=== PATIENT | female | born 1995 | race Hispanic/Latino ===

== ENCOUNTER 2024-02-09 10:55 | Inpatient (IN) | payer MEDICAID ==
[~2024-02-09] VITALS: Ht 149.9 cm; Wt 100.2 kg
[2024-02-09] MEDS ORDERED: LACTATED RINGERS 1000ML 1,000 ML IV PRN (11:00)
[2024-02-09 11:43] LABS: HEMATOCRIT 33.2 % (36-48); MEAN CORPUSCULAR HEMOGLOBIN 28.3 pg (27.0-33.0); MEAN CORPUSCULAR HGB CONC 31.9 g/dL (32.0-36.0); MEAN CORPUSCULAR VOLUME 88.5 fL (79-99); RED BLOOD CELL COUNT(AUTO) 3.75 MIL/uL (4.00-5.50); RED CELL DISTRIBUTION WIDTH 16.9 % (11.0-15.5); WHITE BLOOD COUNT (AUTO) 8.7 K/uL (4.8-10.8)
[2024-02-09 11:53] LABS: CREATININE 0.7 mg/dL (0.5-1.0); POTASSIUM 3.8 mmol/L (3.5-5.1)
[2024-02-09 11:57] LABS: ALBUMIN 2.3 g/dL (3.5-5.0); BILIRUBIN,TOTAL 0.3 mg/dL (0.2-1.0); TOTAL PROTEIN, SERUM 6.1 g/dL (6.0-8.3)
[2024-02-09 12:02] LABS: INR <= 0.93 (0.85-1.15); PROTHROMBIN TIME 9.8 SEC (9.6-11.6)
[2024-02-09 12:03] LABS: PARTIAL THROMBOPLASTIN TIME 26.4 SEC (26.3-35.5)
[2024-02-09 12:06] LABS: FIBRINOGEN 407 mg/dL (180-350)
[2024-02-09 12:35] LABS: HIV 1&2 ANTIBODY Non-Reactive (Negative); HIV-1 p24 Antigen Non-Reactive (Negative)
[2024-02-09] MEDS ORDERED: ceFAZolin SODIUM 1 GM VIAL IVPB PRN (13:00)
[2024-02-09] MEDS ORDERED: CALDOLOR 800MG+NS 250ML 250 ML IV PRN (13:00)
[2024-02-09 15:05] LABS: APPEARANCE,URINE CLEAR (CLEAR); BILIRUBIN,URINE NEGATIVE (NEGATIVE); COLOR,URINE LIGHT-YELLOW (YELLOW); GLUCOSE, URINE (UA) NEGATIVE (NEGATIVE); KETONES,URINE 10 mg/dL (NEGATIVE); LEUKOCYTE ESTERASE ,URINE NEGATIVE Leu/uL (NEGATIVE); NITRATE,URINE NEGATIVE (NEGATIVE); OCCULT BLOOD,URINE NEGATIVE (NEGATIVE); PROTEIN,URINE 20 mg/dL (NEGATIVE); UROBILINOGEN,URINE 0.2 mg/dL (0.2-1.0)
[2024-02-09 15:13] LABS: ADD UA MICROSCOPIC YES
[2024-02-09 15:15] LABS: BACTERIA,URINE RARE /HPF (None Seen); MUCUS,URINE RARE LPF (None Seen); RBC,URINE 0-1 /HPF (0-1); SQUAMOUS EPITHELIAL CELL,UR FEW /HPF (0-2); WBC,URINE 0-1 /HPF (0-1); YEAST,URINE BUDDING RARE /HPF (None Seen)
[2024-02-09] MEDS ORDERED: FENTanyl CITRate PF 50 MCG/1 ML 2ML VIAL ONE ×2 (16:54→17:07)
[2024-02-09] MEDS ORDERED: hydroMORPHone 1 MG INJ ONE (16:58)
[2024-02-09] MEDS ORDERED: ROPivacaine 0.5% 5MG/ML 30ML ONE (16:59)
[2024-02-09] MEDS: CITRIC ACID/SODIUM CITRATE 30 ML UDCUP ONE (17:07)
[2024-02-09] MEDS ORDERED: phenylEPHRINE HCL 10 MG/ML 1ML VIAL IV ONE (17:08)
[2024-02-09] MEDS: ceFAZolin SODIUM 3 GM VIAL IVPB ONE (17:12)
[2024-02-09] MEDS ORDERED: MISOPROSTOL 200 MCG TABLET ONE (17:23)
[2024-02-09] MEDS ORDERED: ondanSETRON 4MG INJ ONE (17:36)
[2024-02-09] MEDS ORDERED: MIDAZOLAM HCL 1 MG/ML 2ML VIAL ONE (17:48)
[2024-02-09] MEDS ORDERED: 0.9%NACL 10ML VIAL IVP PRN (18:30)
[2024-02-09] MEDS ORDERED: DEXTROSE 5 %-0.45 % NACL 1,000 ML IV PRN (18:30)
[2024-02-09] MEDS ORDERED: MEPERIDINE-PF 75 MG/ML SYG IM PRN (18:30)
[2024-02-09] MEDS ORDERED: PROMETHAZINE HCL 25 MG/ML 1ML AMPULE IM PRN (18:30)
[2024-02-09] MEDS: hydroMORPHone 0.5 MG SYG (0.5MG/0.5ML) IVP PRN (19:56)
[2024-02-09] MEDS ORDERED: TRANEXAMIC ACID 1000MG/10ML ONE (21:19)
[2024-02-09] MEDS: MISOPROSTOL 200 MCG TABLET PR SCH (22:54)
[2024-02-09] MEDS: TRANEXAMIC ACID 1000MG/10ML IV ONE (22:56)
[2024-02-09 23:47] LABS: HEMATOCRIT 27.6 % (36-48); MEAN CORPUSCULAR HEMOGLOBIN 28.3 pg (27.0-33.0); MEAN CORPUSCULAR HGB CONC 32.2 g/dL (32.0-36.0); MEAN CORPUSCULAR VOLUME 87.9 fL (79-99); RED BLOOD CELL COUNT(AUTO) 3.14 MIL/uL (4.00-5.50); RED CELL DISTRIBUTION WIDTH 16.6 % (11.0-15.5); WHITE BLOOD COUNT (AUTO) 13.6 K/uL (4.8-10.8)
[2024-02-10] VITALS (9 sets, daily range): BP systolic 107–158; BP diastolic 56–77; PULSE 61–102; RESP 18–20; TEMP 97.5–98.3
[2024-02-10] MEDS ORDERED: LANOLIN 30GM OINTMENT TP PRN
[2024-02-10] MEDS ORDERED: BisaCODYL 10 MG SUPP.RECT RC PRN
[2024-02-10] MEDS ORDERED: acetaMINOPHEN 500 MG TABLET PO PRN
[2024-02-10] MEDS ORDERED: HYDROcodone/APAP 5/325 1 TAB TABLET PO PRN
[2024-02-10] MEDS: CALDOLOR 800MG+NS 250ML 250 ML IV SCH (01:41)
[2024-02-10] MEDS ORDERED: PNV#1CAP5 PO (06:14)
[2024-02-10] MEDS ORDERED: FERR-82 PO (06:14)
[2024-02-10] MEDS ORDERED: MONT-39 PO (06:14)
[2024-02-10] MEDS ORDERED: ASPI-1005 PO (06:14)
[2024-02-10] MEDS ORDERED: DOXY1TAB3 PO (06:14)
[2024-02-10 07:02] LABS: HEMATOCRIT 23.2 % (36-48); MEAN CORPUSCULAR HEMOGLOBIN 28.1 pg (27.0-33.0); MEAN CORPUSCULAR HGB CONC 32.3 g/dL (32.0-36.0); MEAN CORPUSCULAR VOLUME 86.9 fL (79-99); RED BLOOD CELL COUNT(AUTO) 2.67 MIL/uL (4.00-5.50); RED CELL DISTRIBUTION WIDTH 16.5 % (11.0-15.5); WHITE BLOOD COUNT (AUTO) 13.2 K/uL (4.8-10.8)
[2024-02-10] MEDS: SIMETHICONE 80 MG TAB.CHEW PO PRN (09:04)
[2024-02-10] MEDS: doCUSate SODIUM 100 MG CAP PO SCH (09:04)
[2024-02-10] MEDS: monteLUKAST sodIUM 10 MG TAB PO SCH (09:05)
[2024-02-10] MEDS: ibuPROFEN 800 MG TAB PO SCH (12:40)
[2024-02-10 13:52] LABS: RAPID PLASMA REAGIN NONREACTIVE (NONREACTIVE)
[2024-02-10] MEDS: MISOPROSTOL 100 MCG TABLET PR ONE (14:59)
[2024-02-11] VITALS (11 sets, daily range): BP systolic 115–135; BP diastolic 57–76; PULSE 74–104; RESP 16–18; TEMP 97.5–98
[2024-02-11 06:16] LABS: BASOPHILS # (AUTO) 0.03 K/uL (0.00-0.20); BASOPHILS % (AUTO) 0.2 % (0.0-5.0); EOSINOPHILS % (AUTO) 0.8 % (0.0-8.0); IMMATURE GRANULOCYTE ABSOLUTE 0.19 K/uL (0-1); LYMPHOCYTES # (AUTO) 3.9 K/uL (1.0-4.8); LYMPHOCYTES % (AUTO) 32.4 % (21.0-51.0); MEAN CORPUSCULAR HGB CONC 31.9 g/dL (32.0-36.0); MEAN CORPUSCULAR VOLUME 90.9 fL (79-99); MONOCYTES # (AUTO) 0.5 K/uL (0.1-1.0); MONOCYTES % (AUTO) 4.3 % (3.0-13.0); NEUTROPHILS # (AUTO) 7.3 K/uL (1.8-7.7); NEUTROPHILS % (AUTO) 60.7 % (40.0-77.0); NUCLEATED RED BLOOD CELLS 0.2 % (0.0-0.19); PLATELET COUNT (AUTO) 181 K/uL (130-400); RED BLOOD CELL COUNT(AUTO) 2.31 MIL/uL (4.00-5.50); RED CELL DISTRIBUTION WIDTH 17.7 % (11.0-15.5)
[2024-02-11] MEDS: ibuPROFEN 800 MG TAB PO SCH (09:39)
[2024-02-11 10:08] LABS: HEMATOCRIT 21.8 % (36-48)
[2024-02-11 15:03] LABS: HEMATOCRIT 25.7 % (36-48)
== END 2024-02-11 19:19 | disposition home or self-care (01) | DRG 540 ==
LOC: LDH 10:55 → WSH 02-11 15:35
PROVIDERS: ADMIT Obstetrics & Gynecology; ATTEND Obstetrics & Gynecology
PROC: 10D00Z1 Extraction of Products of Conception, Low, Open Approach (ICD-10-PCS; principal; 2024-02-09 14:00)
PROC: 30233N1 Transfusion of Nonautologous Red Blood Cells into Peripheral Vein, Percutaneous Approach (ICD-10-PCS; 2024-02-10)
DX: O14.04 Mild to moderate pre-eclampsia, complicating childbirth (principal); O99.214 Obesity complicating childbirth; O34.211 Maternal care for low transverse scar from previous cesarean delivery; O99.02 Anemia complicating childbirth; Z37.0 Single live birth; Z3A.37 37 weeks gestation of pregnancy
CPT/HCPCS: 36415; 36430; 76856; 80053; 81001; 84550; 85014; 85018; 85025; 85027; 85384; 85610; 85730; 86078; 86592; 86701; 86850; 86900; 86901; 86922; 86923; 87340; 87390; G0378; J0690; J1170; J1741; J2250; J2371; J2405; J2590; J2795; J3010; J3490; J7030; J7120; P9016